=== PATIENT | male | born 1970 | race Caucasian/White ===

== ENCOUNTER 2018-01-09 17:47 | Emergency (ER) | payer SELFPAY ==
--- NOTE | 2018-01-09 18:51 | ED Physician Documentation ---
Upper Extremity Injury - HISTORIAN Historian: patient - HPI Stated Complaint: R shoulder pain Chief Complaint: Shoulder Injury/ Pain Additional Information: Moving furniture today. Lifted couch and felt muscle pull right shoulder. Took 800 mg ibuprofen an hour ago, w/o relief. No other associated signs. - ROS CONST: no problems - PAST HX Past History: Rt handed Allergies/Adverse Reactions: Allergies Allergy/AdvReac Type Severity Reaction Status Date / Time No Known Allergies Allergy Verified 01/09/18 18:04 Home Medications: Ambulatory Orders Medication Instructions Recorded Cyclobenzaprine HCl [Flexeril] 10 mg PO HS #10 tablet 01/09/18 Hydrocodone/Acetaminophen [[place] 1 tab PO Q4H PRN #15 01/09/18 5-325 Tablet] Levothyroxine Sodium [Synthroid] 1 tab PO DAILY 01/09/18 - SOCIAL HX Smoking History: non-smoker - FAMILY HX Family History: no significant history - VITAL SIGNS Vital Signs: Vital Signs Temp Pulse Resp BP Pulse Ox 97 H 17 142/91 96 01/09/18 17:55 01/09/18 17:55 01/09/18 17:55 01/09/18 17:55 - REVIEWED ASSESSMENTS Nursing Assessment Reviewed: Yes Vitals Reviewed: Yes Progress - Progress Progress: Report Submission Date: Jan 09, 2018 6:37:28 PM CDT Patient Study Name: KEVIN DE LA ROSA Date: Jan 09, 2018 6:07:31 PM CDT Modality Type: DX Gender: M Description: SHOULDER : 72 Institution: [facility] Physician: RADHA TERRELL - HOLLIS 3 views right shoulder Clinical history: The Right shoulder pain Findings: There is no acute fracture or dislocation. Alignment is normal. Impression: Negative Electronically signed on Jan 09, 2018 6:37:28 PM CDT by: Ad Herrera ED Results Lab/Radiology - Orders Orders: ED Orders Category Date Time Status SHOULDER 2 VIEWS OR MORE [RAD] Stat Exams 01/09/18 Ordered Upper Extremity Injury Physic - Physical Exam General Appearance: alert, moderate distress Hand: normal inspection, no evidence of injury Wrist: normal inspection, no evidence of injury Elbow/Forearm: normal inspection, no evidence of injury Shoulder: normal ROM (but slow, 2/2 pain), swelling (right trap. Area of swelling and tenderness 15-20 cm diameter. No step off, no discoloration. ) Neuro/Vascular/Tendon: no vascular compromise Skin: warm,dry Head/ENT: nml inspection Neck/Back: nml inspection Resp/CVS: no resp. distress Discharge Clincal Impression: Muscle strain Prescriptions: Cyclobenzaprine HCl [Flexeril] 10 mg PO HS #10 tablet Hydrocodone/Acetaminophen [[place] 5-325 Tablet] 1 tab PO Q4H PRN #15 PRN Reason: Pain Referrals: Primary Doctor,No [Primary Care Provider] - 2 Days Condition: Fair Disposition: 01 HOME, SELF-CARE Decision to Admit: NO Decision Time: 18:55
[2018-01-09 18:57] VITALS: BP 138/72
--- NOTE | 2018-01-09 20:21 | Diagnostic Imaging Report ---
[facility] [id number] [facility].[address] [id number] Report Submission Date: Jan 09, 2018 6:37:28 PM CDT Patient Study Name: KEVIN DE LA ROSA Date: Jan 09, 2018 6:07:31 PM CDT Modality Type: DX Gender: M Description: SHOULDER : 72 Institution: [facility] Physician: RADHA TERRELL 3 views right shoulder Clinical history: The Right shoulder pain Findings: There is no acute fracture or dislocation. Alignment is normal. Impression: Negative Electronically signed on Jan 09, 2018 6:37:28 PM CDT by: Ad FRANK
== END 2018-01-09 18:55 | disposition home or self-care (01) ==
LOC: ED 17:47
DX: S46.911A Strain of unspecified muscle, fascia and tendon at shoulder and upper arm level, right arm, initial encounter (principal); X58.XXXA Exposure to other specified factors, initial encounter; Y92.9 Unspecified place or not applicable; Y93.9 Activity, unspecified; Y99.9 Unspecified external cause status
CPT/HCPCS: 73030; 99283